=== PATIENT | female | born 1990 | race Caucasian/White ===

== ENCOUNTER 2016-08-05 17:32 | Outpatient (CLI) | payer OTHER ==
--- NOTE | 2016-08-05 19:24 | Progress Note ---
Progress Note Here for decreased movement at 39 weeks. NST Cat 1. BPP 02/01. No contractions. Abdomen is soft and non-tender. Will discharge home.
--- NOTE | 2016-08-05 19:46 | DIAGNOSTIC IMAGING REPORT ---
ULTRASOUND BIOPHYSICAL PROFILE CLINICAL HISTORY: Decreased movement. COMPARISON STUDY: No priors. FINDINGS: Real-time, grayscale, and color Doppler sonography of the fetus is performed. A biophysical profile was assessed. There is a single live intrauterine gestation, with an estimated heart rate of 154 bpm. The femoral length measures 7.55 cm, corresponding to an estimated age of 38 weeks 4 days. The placenta is anterior. The amniotic fluid index measures 16.8 cm. The biophysical profile score is 8 of 8. IMPRESSION: 1. There is a single live intrauterine gestation with an estimated age of 38 weeks 4 days by femoral length measurement. 2. The biophysical profile score is 8 of 8. 3. Note that this does not constitute a dedicated anatomic scan. Dictated: 08/05/2016 7:03 PM Transcribed: 08/05/2016 7:46 PM [email or web address] Electronically signed by: Trent Mcneill M.D. 08/05/2016 7:54 PM Dictated Date/Time: 08/05/2016 7:03 PM
== END 2016-08-05 19:30 | disposition home or self-care (01) ==
LOC: C.LD 17:32 → C.OPB 17:32
PROVIDERS: ATTEND Obstetrics & Gynecology
DX: O36.8130 Decreased fetal movements, third trimester, not applicable or unspecified (principal); Z3A.39 39 weeks gestation of pregnancy

== ENCOUNTER 2016-08-15 19:04 | Inpatient (IN) | payer OTHER ==
[~2016-08-15] VITALS: Ht 175.3 cm; Wt 102.7 kg
[2016-08-15] MEDS ORDERED: LACTATED RINGER'S 1000ML 1,000 ML IV SCH ×2 (19:07→20:29)
[2016-08-15] MEDS ORDERED: LACTATED RINGER'S 1000ML 1,000 ML IV PRN (19:07)
[2016-08-15 19:25] VITALS: Ht 175.3 cm; Wt 102.7 kg
[2016-08-15] MEDS ORDERED: PRENTAB26 PO (19:28)
[2016-08-15 19:31] LABS: HEMATOCRIT 37.6 % (37-47); MEAN CELL VOLUME 87.2 fL (80-100); MEAN CORPUSCULAR HEMOGLOBIN 29.5 pg (25-34); MEAN CORPUSCULAR HGB CONC 33.8 g/dl (32-36); MEAN PLATELET VOLUME 9.6 fL (7.4-10.4); PLATELET COUNT 260 K/uL (130-400); RED BLOOD COUNT 4.31 M/uL (4.2-5.4); WHITE BLOOD COUNT 18.96 K/uL (4.8-10.8)
[2016-08-15] MEDS ORDERED: LANOLIN OINT EXT PRN ×2 (20:30)
[2016-08-15] MEDS ORDERED: BENZOCAINE 20% AER SPR 82.5 GM CAN EXT PRN (20:30)
[2016-08-15] MEDS ORDERED: OXYCODONE/ACETAMINOPHEN 5-325 TAB PO PRN (20:30)
[2016-08-15] MEDS ORDERED: IBUPROFEN 600 MG TAB PO PRN (20:30)
[2016-08-15] MEDS ORDERED: ACETAMINOPHEN 325 MG TAB PO PRN (20:30)
[2016-08-15] MEDS ORDERED: HYDROCORTISONE ACETATE 25 MG SUPP PR PRN (20:30)
[2016-08-15] MEDS ORDERED: SUPERCREAM 0.870 % 15GM JAR EXT PRN (20:30)
[2016-08-15] MEDS ORDERED: METHYLERGONOVINE MALEATE 0.2 MG/ML AMP IM ONE (20:30)
[2016-08-15] MEDS ORDERED: METHYLERGONOVINE MALEATE 0.2 MG/ML AMP ONE (20:33)
[2016-08-15] MEDS: OXYTOCIN 30 UNITS/500ML NSS IV PRN ×2 (20:48→21:40)
--- NOTE | 2016-08-15 20:48 | OPERATIVE REPORT ---
DATE OF OPERATION: 08/15/2016 TIME OF DELIVERY OF BABY: 8:08 p.m. TIME OF DELIVERY OF PLACENTA: 8:20 p.m. DETAILS OF DELIVERY: The patient was found to be fully dilated and desired to push. She pushed for only twice and delivered the head without difficulty. Shoulders were delivered with minimal traction and baby was handed off to the mother where mouth and nose were suctioned, cord was clamped x2 and cut, it was a 3-vessel cord and cord blood was obtained. Vagina and perineum were checked for lacerations. There was a small second degree perineal laceration about 1.5 cm in length at the posterior fourchette, it was repaired with 3-0 Vicryl in a running locked fashion. 1% lidocaine was used for local anesthesia and excellent hemostasis was achieved. The rest of the vagina and perineum were intact and then placenta was found to be in the vagina. Delivered spontaneously as intact and complete. Uterus was explored and found to be empty. Lower segment was cleared of all clots and debris. Fundus was firm. EBL was 200 mL. Mother and baby tolerated the procedure well. Sponge, lap, needle and instrument count was correct x2. Baby was a viable male infant, Apgars 8/9. Weight is 5070 gr. No complications happened. I was present during whole procedure. I attest to the content of the Intraoperative Record and any orders documented therein. Any exceptions are noted below. MTDD
[2016-08-16] VITALS (7 sets, daily range): BP systolic 107–120; BP diastolic 64–76; PULSE 85–110; TEMP 36.5–37.1; O2SAT 97–98
[2016-08-16 06:19] LABS: HEMATOCRIT 38.7 % (37-47)
[2016-08-16] MEDS: DOCUSATE SODIUM 100 MG CAP PO SCH ×2 (08:46→19:23)
[2016-08-16] MEDS: FERROUS SULFATE 325 MG TAB PO SCH (08:46)
[2016-08-16] MEDS: PRENATAL VITAMIN TAB PO SCH (08:47)
[2016-08-16] MEDS ORDERED: DIPHTHERIA/TETANUS/PERTUSSIS 0.5 ML SYR/VIAL IM. ONE (09:00)
[2016-08-16] MEDS ORDERED: MEASLES, MUMPS & RUBELLA VIRUS VIAL SQ. ONE (09:00)
--- NOTE | 2016-08-16 11:54 | OB/GYN Progress Note ---
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 Subjective conversation w/ patient, physical exam Ambulation: ambulating normally Voiding: no voiding problems Passing Gas: Yes Diet Tolerance: Regular Diet Lochia: Moderate Feeding Type: Breast Feeding Pain: 210 Notes: Doing well, no concerns. Pain well controlled. Lochia decreasing. Tolerating regular diet. Ambulating without difficulty. Objective Vital Signs Date Time Temp Pulse Resp B/P Pulse Ox O2 Delivery O2 Flow Rate FiO2 08/16/16 08:00 98 Room Air 08/16/16 08:00 36.8 86 18 116/71 98 Room Air 08/16/16 04:30 36.7 95 18 117/76 Room Air 08/16/16 00:00 Room Air 08/16/16 00:00 36.5 110 18 107/71 Room Air Physical Exam General Appearance: WELL-APPEARING Respiratory/Chest: chest non-tender, lungs clear Cardiovascular: regular rate, rhythm Abdomen: normal bowel sounds, soft Fundus: Firm Extremities: normal range of motion, non-tender Laboratory Results Last 24 Hours Test 08/15/16 19:23 08/16/16 05:58 White Blood Count 18.96 K/uL Red Blood Count 4.31 M/uL Hemoglobin 12.7 g/dL 13.4 g/dL Hematocrit 37.6 % 38.7 % Mean Corpuscular Volume 87.2 fL Mean Corpuscular Hemoglobin 29.5 pg Mean Corpuscular Hemoglobin Concent 33.8 g/dl RDW Standard Deviation 43.9 fL RDW Coefficient of Variation 13.7 % Platelet Count 260 K/uL Mean Platelet Volume 9.6 fL Assessment and Plan Post- Day Number: 1 Continue Routine Care: -Continue routine care -Anticipate d/c home tomorrow.
[2016-08-16] MEDS ORDERED: BISACODYL 5 MG TABEC PO SCH (20:00)
[2016-08-17] MEDS ORDERED: BISACODYL 10 MG SUPP PR PRN (07:00)
[2016-08-17 07:50] VITALS: BP 117/72; PULSE 77; TEMP 36.5; O2SAT 99
[2016-08-17] MEDS: DOCUSATE SODIUM 100 MG CAP PO SCH (08:30)
[2016-08-17] MEDS: PRENATAL VITAMIN TAB PO SCH (08:30)
[2016-08-17] MEDS: FERROUS SULFATE 325 MG TAB PO SCH (08:30)
--- NOTE | 2016-08-17 08:43 | OB/GYN Progress Note ---
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 Subjective conversation w/ patient, physical exam Ambulation: ambulating normally Voiding: no voiding problems Passing Gas: Yes Diet Tolerance: Regular Diet Lochia: Moderate Feeding Type: Breast Feeding Review of Systems Constitutional: No chills, No fatigue, No fever, No problem reported, No sweats , No weakness, No weight loss Respiratory: No cough, No dyspnea at rest, No dyspnea on exertion, No hemoptysis, No problem reported, No shortness of breath, No sputum, No wheezing Cardiac: No PND, No chest pain, No claudication, No edema, No orthopnea, No palpitations, No problem reported Breast: No breast lump, No breast pain, No change in shape, No nipple discharge , No problem reported, No see HPI Abdomen: No GI bleeding, No constipation, No diarrhea, No nausea, No pain, No problem reported, No vomiting Female : No abnormal vaginal bleeding, No dysuria, No hematuria, No incontinence, No problem reported, No see HPI, No urinary frequency, No vaginal discharge Vd Day #2 pt doing well d/c home with instructions Objective Vital Signs Date Time Temp Pulse Resp B/P Pulse Ox O2 Delivery O2 Flow Rate FiO2 08/16/16 23:55 Room Air 08/16/16 23:55 36.6 95 18 110/71 Room Air 08/16/16 19:25 36.7 104 18 114/64 Room Air 08/16/16 16:15 Room Air 08/16/16 16:15 37.1 85 18 116/76 Room Air 08/16/16 13:00 36.6 87 18 120/76 97 Room Air Laboratory Results Last 24 Hours Test 08/17/16 07:28 Assessment and Plan Post- Day Number: 1
[2016-08-17] MEDS ORDERED: MTR600X PO (08:44)
[2016-08-17 08:45] LABS: HEMATOCRIT 35.8 % (37-47); MEAN CELL VOLUME 87.5 fL (80-100); MEAN CORPUSCULAR HEMOGLOBIN 29.6 pg (25-34); MEAN CORPUSCULAR HGB CONC 33.8 g/dl (32-36); MEAN PLATELET VOLUME 9.5 fL (7.4-10.4); PLATELET COUNT 256 K/uL (130-400); RED BLOOD COUNT 4.09 M/uL (4.2-5.4); WHITE BLOOD COUNT 14.49 K/uL (4.8-10.8)
--- NOTE | 2016-08-17 08:45 | Discharge Instructions ---
Discharge Instructions Admission Reason for Admission: Check Labor Discharge Discharge Diagnosis / Problem: Discharge Goals Goal(s): Routine recovery after delivery Activity Recommendations Activity Limitations: as noted below ACTIVITY RECOMMENDATIONS: * Gradual return to full activity over the next 2-3 weeks. * No lifting - nothing heavier than baby over the next 2-3 weeks. * Do not engage in vigorous exercise, sexual activity or sports until cleared by your physician. * Do not drive or operate any motorized equipment until cleared by your physician. * You may shower/bathe daily. BREAST CARE: If you are not breast feeding: * Wear a supportive bra 24 hours a day for one to two weeks. * Avoid stimulating your breasts and nipples as much as possible during the first few weeks after delivery. * When taking a shower, have the warm water hit your back, not breasts. * When your breasts feel full, apply ice packs. Usually three to four times a day helps ease the discomfort. * Take a mild pain medication (Tylenol/Motrin) when you are uncomfortable. If breast feeding: * Use breast milk to lubricate nipples. Lansinoh cream may be used for sore nipples. You do not need to remove cream prior to breast feeding. If using a different brand of cream, check the label for directions regarding removal of cream prior to nursing. * Wear a supportive bra. * If having problems with breasts or breast feeding, call a [employer] consultant or your health care provider. EPISIOTOMY CARE: After delivery, if you have an episiotomy (stitches), the following steps will ease discomfort and aid healing. * For the first 24 hours after delivery, place ice packs next to your episiotomy to help reduce swelling. * After the first 24 hour-period, sitz baths, either portable or in the tub, are suggested. A shower with a shower arm sprayed over the episiotomy may be comforting. * [place]enia care should be done after each voiding and bowel movement. Squirt warm water from a plastic bottle over the perineum (region of the body between the anus and urinary opening) and pat dry. * Use Dermoplast to ease discomfort. Shake container. [place] directly over the episiotomy. * Place a Tucks on a clean sanitary pad next to your episiotomy. OVER THE COUNTER MEDICATION: * For discomfort or pain, you may use Acetaminophen (Tylenol), Ibuprofen (Advil ), or Naproxen (Aleve) following the package directions. * For constipation you may use Colace following the package directions. SPECIAL CARE INSTRUCTIONS: When you are discharged from the hospital, it is important for you to follow the instructions listed below: * During the first week at home, you should be able to care for yourself and your baby. In addition, the usual light household activities are encouraged. * Limit your activities to the way you feel. Do not try to clean the house or move furniture. Be sensible. * If you actively engage in sports and have done so up until the time of your delivery, you may resume these activities as soon as you feel able. This may take up to one month or even longer. Use good judgment. * Continue to take your vitamins for at least six weeks after the of your baby. * Your diet need not be limited unless you were on a special diet before your delivery. Breast-feeding mothers need around 2500 calories per day and at least 64-80 ounces of fluid per day (8 to 10 glasses). * You should eat foods from the four major food groups. Crash diets or fad diets are to be avoided. Eating lean meats, fresh fruits and vegetables, low-fat dairy products, high fiber foods and a regular exercise program, will help you get back to your pre- weight without putting your health at risk. * Constipation is sometimes a problem after delivery. Take a mild laxative as needed. If breast feeding, Milk of Magnesia is acceptable to use. You may use a suppository or Fleets enema if no episiotomy. * A daily shower or tub bath is suggested. Be sure to thoroughly and gently dry the perineum. * A bloody vaginal discharge will usually continue until around four weeks post . A small amount of bleeding may continue for as long as six weeks. Vaginal discharge changes from the bright red bleeding after delivery to pink then brownish and finally yellowish-pink before becoming white and disappearing. * Bleeding may increase with activity. Your first period may come in 4-8 weeks. If you are breast feeding, your period may be delayed even longer. * [place] (sex) can begin whenever both you and your partner feel comfortable and do not have any form of genital infection. It is recommended that you wait until after your return appointment and discuss with your physician. If you have questions, please talk to your health care practitioner. A condom should be used to prevent infection and . * Foreplay, gentle intercourse and lubrication is very important the first several times to prevent pain. A water-based lubricant such as K-Y jelly or Astroglide may be used. * Tampons may be used six weeks after delivery. * Douching should be avoided for 6 weeks after delivery. * If you have RH negative blood and your baby is RH positive, you will receive RHOGAM by injection prior to discharge. The nurse will give you a card to keep with you that has the date and place that you received RHOGAM after delivery. * During your care, you had a Rubella screen done to check for the presence of rubella antibodies in your blood. If your test was negative, you will receive a Rubella vaccine prior to discharge. This vaccine may cause a fever, soreness at the injection site and flu-like symptoms. If these symptoms persist, notify your health care practitioner. is not advised for three months after a Rubella vaccine. There is a higher chance of having a baby with defects if conceived within three months of getting the vaccine. * If you were discharged 24 hours from delivery or before 48 hours: Visiting nurses will come to your home 48 hours after discharge to assess you and your baby. The visiting nurse will meet with you while you are in the hospital to arrange a time and get directions to your home. * Verbalizes understanding of car seat law as reviewed with patient nursing. * Car Seat hand-out given and reviewed with patient by nursing. * Shaken baby information reviewed with patient by nursing. Call you doctor if: * Heavy bleeding (saturating several pads an hour) or passing clots the size of your fist. * A fever >101 degrees F (38.3 degrees C) on two occasions four hours apart and/or chills. * Unusual pain in the pelvic or vaginal areas. * "Baby Blues" lasting longer than two weeks. If you have any questions or concerns, call your health care practitioner at . FOLLOW-UP VISIT: * Please call the office at to schedule a 6 week examination. It is important you keep this appointment. * It is important for you to make arrangements for either yearly or twice yearly check-ups thereafter. . Current Hospital Diet Patient's current hospital diet: Regular OB Diet Discharge Diet Recommended Diet: Regular Diet Pending Studies Studies pending at discharge: no Medical Emergencies . Who to Call and When: Medical Emergencies: If at any time you feel your situation is an emergency, please call 911 immediately. . Non-Emergent Contact Non-Emergency issues call your: Specialist . . "Provider Documentation" section prepared by Oscar Valverde. VTE Core Measure Inpt VTE Proph given/why not?: Treatment not indicated
--- NOTE | 2016-08-17 09:54 | Progress Note ---
Progress Note called to evaluate pt with c/o mass in left thigh pt has had this thru . no pain or erythema. no SOb PE 1inc swelling in inner mid left thigh. no erythema. non tender to touch No tenderness, erythema or pain in the popliteal region of the left thigh Plan Doppler of the left thigh ordered to R/O VTE
--- NOTE | 2016-08-17 11:15 | DIAGNOSTIC IMAGING REPORT ---
Venous Doppler left leg LEFT VENOUS DOPP LOWER EXT UNILAT CLINICAL HISTORY: swelling in left thigh . pain. Edema. TECHNIQUE: Venous Doppler COMPARISON STUDY: None FINDINGS: Normal study IMPRESSION: Normal study Electronically signed by: Thai Rao M.D. 08/17/2016 11:13 AM Dictated Date/Time: 08/17/2016 11:13 AM
[2016-08-17 12:30] VITALS: BP_DIAS 72; PULSE 77; TEMP 36.5
== END 2016-08-17 12:30 | disposition home or self-care (01) | DRG 775 ==
LOC: C.OPB 19:04 → C.LD 19:06 → C.OPB 19:09 → C.LD 19:09 → C.OBG 23:45
PROVIDERS: ADMIT Obstetrics & Gynecology; ATTEND Obstetrics & Gynecology
PROC: 0KQM0ZZ Repair Perineum Muscle, Open Approach (ICD-10-PCS; principal; 2016-08-15)
PROC: 10E0XZZ Delivery of Products of Conception, External Approach (ICD-10-PCS; principal; 2016-08-15)
DX: O48.0 Post-term pregnancy (principal); O70.1 Second degree perineal laceration during delivery; R22.42 Localized swelling, mass and lump, left lower limb; O99.72 Diseases of the skin and subcutaneous tissue complicating childbirth; Z37.0 Single live birth; Z3A.40 40 weeks gestation of pregnancy